=== PATIENT | female | born 1935 | race Asian ===

== ENCOUNTER 2021-03-31 13:55 | Emergency (ER) | payer OTHER ==
[~2021-03-31] VITALS: Ht 132.1 cm; Wt 43.1 kg
[~2021-03-31 13:55] MED LIST: CARB100T PO; CARV3.12 PO; CLOP75TA PO; GABA100C PO; NITR0.4T2 SL; VAS2.5 PO
[2021-03-31 14:06] VITALS: BP 176/80
[2021-03-31] MEDS ORDERED: KETOROLAC 30 MG/ML VIAL IM ONE (14:45)
[2021-03-31] MEDS ORDERED: ACET-8386 PO (15:51)
[2021-03-31] MEDS ORDERED: IBUP-1842 PO (15:51)
[2021-03-31 16:00] VITALS: BP 165/82
== END 2021-03-31 16:00 | disposition home or self-care (01) ==
LOC: MED 13:55
DX: M25.511 Pain in right shoulder (principal); I10 Essential (primary) hypertension; Z79.899 Other long term (current) drug therapy; Z98.890 Other specified postprocedural states; W07.XXXA Fall from chair, initial encounter; Y93.89 Activity, other specified; Y92.89 Other specified places as the place of occurrence of the external cause; Y99.8 Other external cause status
CPT/HCPCS: 73030; 73060; 73080; 96372; 99284; J1885

== ENCOUNTER 2021-04-19 23:34 | Inpatient (IN) | payer OTHER, SELFPAY ==
[~2021-04-19] VITALS: Ht 149.9 cm; Wt 36.3 kg
[~2021-04-19 23:34] MED LIST changes: +ACET-8386 PO; +IBUP-1842 PO
[2021-04-19 23:59] VITALS: BP 190/65
--- NOTE | 2021-04-20 00:02 | NUR ---
TO LOBBY A/W BED AMBULATORY
--- NOTE | 2021-04-20 01:30 | NUR ---
PT BE BED BY WHEELCHAIR
[2021-04-20 01:59] LABS: BASOPHILS % (AUTO) 0.4 % (0.0-2.0); EOSINOPHILS # (AUTO) 0.2 K/uL (0-0.4); EOSINOPHILS % (AUTO) 2.5 % (0.0-4.0); HEMATOCRIT 33.8 % (36-48); HEMOGLOBIN 11.6 g/dL (12.0-16.0); LYMPHOCYTES # (AUTO) 1.3 K/uL (2.5-16.5); MEAN CORPUSCULAR HEMOGLOBIN 34 pg (27-31); MEAN CORPUSCULAR HGB CONC 35 g/dL (33-37); MEAN CORPUSCULAR VOLUME 98.7 fL (80-94); MONOCYTES # (AUTO) 0.7 K/uL (0.8-1.0); MONOCYTES % (AUTO) 10.7 % (1.7-9.3); NEUTROPHILS # (AUTO) 4.7 K/uL (1.8-7.7); NEUTROPHILS % (AUTO) 67.4 % (42.2-75.2); PLATELET COUNT (AUTO) 263 K/uL (140-450); RED BLOOD CELL COUNT(AUTO) 3.42 MIL/uL (4.20-5.40); RED CELL DISTRIBUTION WIDTH 12.9 % (11.6-13.7); WHITE BLOOD COUNT (AUTO) 6.9 K/uL (4.8-10.8)
--- NOTE | 2021-04-20 02:05 | NUR ---
85 YO/F BIB son w CO lower L abdominal/pelvic pain 04/17, describes as "heavy" pain and unable to urinate x1 day. Patient also reports slight BENZ. Bowel sounds present through out all quadrants. AOX4, GCS15, breathing even and unlabored. Patient laying in bed locked in lowest position x2 side rails up for patient safety. Son at bed side. NAD, will continue to monitor. PMH:HTN NKA
--- NOTE | 2021-04-20 02:20 | NUR ---
DOVD made aware of patient's elevated BP.
--- NOTE | 2021-04-20 02:30 | NUR ---
400mL clear yellow urine collected via straight cath, sample collected for lab.
[2021-04-20 02:36] LABS: ALBUMIN 3.8 g/dL (3.4-5.0); ANION GAP 12.4 (8-16); ASPARTATE AMINOTRANSFERASE 22 U/L (15-37); CARBON DIOXIDE 26.1 mmol/L (21-32); CHLORIDE 93 mmol/L (98-107); CREATININE 0.7 mg/dL (0.6-1.3); GLUCOSE 100 mg/dL (74-106); LIPASE 163 U/L (73-393); POTASSIUM 3.5 mmol/L (3.5-5.1); SODIUM SERUM 128 mmol/L (136-145); TOTAL BILIRUBIN 0.3 mg/dL (0.0-1.0); UREA NITROGEN, BLOOD 14 mg/dL (7-18)
[2021-04-20 02:44] LABS: APPEARANCE,URINE CLEAR (CLEAR); BILIRUBIN,URINE NEGATIVE (NEGATIVE); BLOOD, URINE NEGATIVE (NEGATIVE); COLOR,URINE YELLOW (YELLOW); LEUKOCYTE ESTERASE ,URINE NEGATIVE (NEGATIVE); NITRITE, URINE NEGATIVE (NEGATIVE); PH,URINE 6.5 (5.0-9.0); UGLUCOSE NEGATIVE (NEGATIVE)
[2021-04-20] MEDS ORDERED: NACL 0.9% 1,000 ML IV SCH ×2 (03:00→11:40)
--- NOTE | 2021-04-20 05:20 | NUR ---
16 FR PAT CATHETER INSERTED W 400CC CLEAR URINE OUTPUT. PATIENT STATES RELIEF OF ABDOMINAL/PELVIC SYMPTOMS.
[2021-04-20] MEDS ORDERED: NACL 0.9% 1,000 ML IV ONE (05:50)
--- NOTE | 2021-04-20 06:05 | NUR ---
Trinity sample collected from patient nares, walked sample to lab and handed to Sole from lab.
[2021-04-20] MEDS ORDERED: CARV3.12 PO (06:36)
[2021-04-20] MEDS ORDERED: GABA100C PO (06:36)
[2021-04-20] MEDS ORDERED: CARB200T1 PO (06:36)
[2021-04-20] MEDS ORDERED: CARB1TAB37 PO (06:36)
[2021-04-20] MEDS ORDERED: [UNRECOGNIZED DRUG - CODE] PO (06:36)
[2021-04-20] MEDS ORDERED: ENAL10TA51 PO (06:36)
[2021-04-20] MEDS ORDERED: ACET-8386 PO (06:36)
[2021-04-20] MEDS ORDERED: AMAN100S37 PO (06:36)
--- NOTE | 2021-04-20 07:09 | NUR ---
Report given to MAURO Garcia for transfer of care at this time.
--- NOTE | 2021-04-20 07:30 | NUR ---
Received report from Ofe WADE, assumed care at this time.
--- NOTE | 2021-04-20 07:51 | NUR ---
Patient will be admitted to care of Dr. Waldrop. Admited to TELE. Will go to room 110B. Belongings list completed. Report to Adelina.
[2021-04-20 08:00] VITALS: BP 165/85
--- NOTE | 2021-04-20 08:00 | NUR ---
PRIOR TO PATIENT ARRIVAL, RECEIVED REPORT FROM ED NURSE. PT RESTING IN BED WITH SON AT BEDSIDE. ABLE TO MAKE NEEDS KNOWN. RESPIRATIONS EVEN AND UNLABORED WITH NO SOB OR RESPIRATORY DISTRESS. SKIN WARM AND DRY TO TOUCH. MRSA SWAB COLLECTED AND SENT TO LAB. SAFETY MEASURES IN PLACE. WILL CONTINUE TO MONITOR
--- NOTE | 2021-04-20 08:15 | NUR ---
PATIENT CALLED AND SAID SHE NEEDS TO USE THE BEDPAN. PT HAD XL FORMED BROWN BOWEL MOVEMENT. CLEANED UP PATIENT COMFORTABLY. SAFETY MEASURES IN PLACE. WILL CONTINUE TO MONITOR
--- NOTE | 2021-04-20 08:34 | NUR ---
PATIENT HAS BEEN SCREENED AND CATEGORIZED HIGH NUTRITION RISK. PATIENT WILL BE SEEN WITHIN 1-2 DAYS OF ADMISSION. 04/20/21-04/21/[address]
--- NOTE | 2021-04-20 09:15 | NUR ---
ADMINISTERED SCHED MED PRESCRIBED PER MD ORDER. PT TOLERATED WELL. SAFETY MEASURES IN PLACE. WILL CONTINUE TO MONITOR
--- NOTE | 2021-04-20 10:30 | NUR ---
COLLECTED URINE SODIUM, PER MD ORDER. PT TOLERATED WELL. SENT SPECIMEN TO LAB. SAFETY MEASURES IN PLACE. WILL CONTINUE TO MONITOR
--- NOTE | 2021-04-20 10:59 | NUR ---
DR MARCELO AT BEDSIDE SPEAKING WITH PT'S SON VIA [employer]IV[employer] PROFESSIONAL ETHEL #[id number] IN SPANISH.
[2021-04-20] MEDS ORDERED: POTASSIUM CHLORIDE 10 MEQ TABER PO PRN (11:40)
[2021-04-20] MEDS ORDERED: MORPHINE SULFATE 2 MG/ML SYR IVP PRN (11:40)
[2021-04-20] MEDS ORDERED: bisacodyL 5 MG TABEC PO PRN (11:40)
[2021-04-20] MEDS ORDERED: ZOLPIDEM 5 MG TAB PO PRN ×2 (11:40)
[2021-04-20] MEDS ORDERED: amLODIPine 5 MG TAB PO SCH (11:40)
[2021-04-20] MEDS ORDERED: ACETAMINOPHEN 325 MG TAB PO PRN (11:40)
[2021-04-20] MEDS ORDERED: DOCUSATE SODIUM 100 MG GELCAP PO PRN (11:40)
[2021-04-20] MEDS ORDERED: ONDANSETRON 4 MG/2 ML VIAL IM/IVP PRN (11:40)
[2021-04-20] MEDS ORDERED: LORazepam 2 MG/ML VIAL IM/IVP PRN (11:40)
[2021-04-20] MEDS ORDERED: MAG SULF 2000 MG/WATER PREMIX 50 ML IV PRN (11:40)
[2021-04-20] MEDS ORDERED: HYDROcodone/APAP 5/325 MG 1 TAB TAB PO PRN (11:40)
[2021-04-20 12:00] VITALS: BP 182/61
--- NOTE | 2021-04-20 12:03 | NUR ---
DR. MARCELO APPROVED RD RECOMMENDATIONS FOR CARDIAC DIET.
[2021-04-20] MEDS ORDERED: ENALAPRIL 10 MG TAB PO SCH (13:00)
[2021-04-20] MEDS ORDERED: MINERAL OIL 135 ML ENEM RC SCH ×2 (13:00→18:00)
--- NOTE | 2021-04-20 13:00 | NUR ---
PATIENT REFUSED MINERAL OIL ENEMA. PT STARTED TO CRY AND BECOME ANGRY WHEN POSITIONED FOR ENEMA. EXPLAINED PROCEDURE TO PATIENT AND SON BUT BOTH DENIED MINERAL OIL ENEMA. PT SON SAYS "SHE HAD BOWEL MOVEMENT THIS MORNING, SHE OKAY." SAFETY MEASURES IN PLACE. WILL CONTINUE TO MONITOR
--- NOTE | 2021-04-20 13:25 | NUR ---
04/20/21 RD INITIAL ASSESSMENT COMPLETED PLEASE REFER TO NUTRITION ASSESSMENT UNDER CARE ACTIVITY FOR ESTIMATED NUTRITIONAL NEEDS. 1. RECOMMEND MECHANICAL SOFT CARDIAC DIET TOLERATED. 2. RD TO FOLLOW-UP 3-5 DAYS, MODERATE RISK STELLA PERRY RD
[2021-04-20] MEDS: CARBIDOPA/LEVODOPA 25/100 MG 1 TAB PO SCH ×2 (13:29→16:48)
--- NOTE | 2021-04-20 14:30 | NUR ---
PT COMPLAINING OF DISCOMFORT WITH PAT BUT DOES NOT WANT ANY PAIN MEDICATIONS. PAGED RAVINDRA ERVIN TO SEAN PAT. REMOVED PAT PER MD ORDER. PT TOLERATED WELL. SAFETY MEASURES IN PLACE. WILL CONTINUE TO MONITOR
[2021-04-20 16:00] VITALS: BP 181/62
--- NOTE | 2021-04-20 16:40 | NUR ---
PT RESTING IN BED. WITH SON AT BEDSIDE. NO SIGNS OF DISTRESS. WILL CONTINUE TO MONITOR
[2021-04-20] MEDS ORDERED: carvediloL 3.125 MG TAB PO SCH ×2 (16:45→21:00)
[2021-04-20 16:49] LABS: ANION GAP 11.9 (8-16); CARBON DIOXIDE 23.9 mmol/L (21-32); CHLORIDE 100 mmol/L (98-107); CREATININE 0.6 mg/dL (0.6-1.3); GLUCOSE 109 mg/dL (74-106); POTASSIUM 3.8 mmol/L (3.5-5.1); PROTHROMBIN TIME 10.2 secs (10.8-13.4); SODIUM SERUM 132 mmol/L (136-145); UREA NITROGEN, BLOOD 16 mg/dL (7-18)
[2021-04-20 17:02] LABS: THYROID STIMULATING HORMONE 0.5 uIU/mL (0.34-3.74)
--- NOTE | 2021-04-20 17:56 | NUR ---
USED [employer] TECHNICIAN ASSISTANT YEN [id number] FOR TRANSLATION. PT SON SAYS PATIENT IS COMPLAINING OF MODERATE PAIN IN LOWER ABDOMEN. ADMINISTERE PRN PAIN MEDICATION PRESCRIBED PER MD ORDER. PT REFUSED ENEMA EARLIER TODAY, PT AND SON IN AGREEMENT FOR ENEMA. PROVIDED ENEMA PRESCRIBED PER MD ORDER. PT TOLERATED WELL. SAFETY MEASURES IN PLACE. WILL CONTINUE TO MONITOR
[2021-04-20 18:03] LABS: MAGNESIUM 1.7 mg/dL (1.8-2.4); PHOSPHORUS 3.4 mg/dL (2.5-4.9)
--- NOTE | 2021-04-20 18:43 | NUR ---
PT HAS NOT VOIDED SINCE PAT WAS REMOVED PER PATIENT AND SON REQUEST. PT HAS PAIN IN LOWER ABD. SCANNED BLADDER AND FOUND 500ML INSIDE BLADDER. PAGED DR. MARCELO, ORDERS RECEIVED, WILL CONTINUE TO MONITOR
--- NOTE | 2021-04-20 19:00 | NUR ---
INSERTED PAT 14FR. PT TOLERATED WELL. 600ML OF URINE OUTPUT. SAFETY MEASURES IN PLACE. WILL CONTINUE TO MONITOR
--- NOTE | 2021-04-20 19:20 | NUR ---
ENDORSED AT BEDSIDE TO NIGHTSHIFT FOR CONTINUITY OF CARE
--- NOTE | 2021-04-20 19:21 | NUR ---
RECEIVED PATIENT FROM AM NURSE FOR CONTINUITY OF CARE. PATIENT IS ICELANDIC SPEAKING. A/A/O X4. RESPIRATORY EVEN AND UNLABORED, ON ROOM AIR, NO SIGN OF DISTRESS NOTED. ABDOMEN SOFT, NON TENDER, NO DISTENDED. BOWEL SOUND ACTIVE TO 4 QUADRANTS. SKIN WARM, DRY, NON DIAPHORETIC. IV ON LEFT WRIST 24G, INTACT AND PATENT, IS INFUSING FLUID ORDER. PAT IN PLACE, CLEAR YELLOW URINE NOTED. PATIENT DENIES ANY PAIN, ABLE TO MAKE NEED KNOWN. FAMILY AT BEDSIDE. PLAN OF CARE DISCUSSED, PATIENT AND FAMILY VERBALIZED UNDERSTANDING. PRECAUTION IN PLACE. CALL LIGHT WITHIN REACH. WILL CONTINUE TO MONITOR.
--- NOTE | 2021-04-20 19:40 | NUR ---
PATIENT'S MAGNESIUM 1.7, MAG SULF IVPB GIVEN WITH EDUCATION TO PATIENT AND FAMILY, PATIENT AND FAMILY VERBALIZED UNDERSTANDING. PATIENT TOLERATED WELL. PRECAUTION IN PLACE. CALL LIGHT WITHIN REACH. WILL CONTINUE TO MONITOR.
[2021-04-20 20:00] VITALS: BP 177/61
--- NOTE | 2021-04-20 20:48 | NUR ---
PATIENT AND PATIENT'S FAMILY WANT TO LEAVE AMA. SUPERIOR AWARE AND EXPLAINED THE CONSEQUENCE TO PATIENT AND FAMILY MEMBER, THEY VERBALIZED UNDERSTANDING. NOTIFIED DR TERRAZAS, DR TERRAZAS AWARE AND OK WITH THE PATIENT'S WISH.
--- NOTE | 2021-04-20 20:53 | NUR ---
PATIENT'S DAUGHTER - MIRYAM WATKINS SIGNED AMA.
[2021-04-20] MEDS ORDERED: GABAPENTIN 100 MG CAP PO SCH (21:00)
[2021-04-20] MEDS ORDERED: carBAMazepine 200 MG TAB PO SCH (21:00)
[2021-04-20] MEDS ORDERED: AMANTADINE 100 MG CAP PO SCH (21:00)
--- NOTE | 2021-04-20 21:23 | NUR ---
[facility] IV REMOVAL, BLEEDING CONTROL. PAT REMOVAL, PATIENT TOLERATED WELL. ID BAND REMOVAL. PATIENT IS STABLE.
[2021-04-21 08:18] LABS: T4 (THYROXINE) 5.4 ug/dL (4.5-12.0)
[2021-04-21] MEDS ORDERED: CLOPIDOGREL 75 MG TAB PO SCH (09:00)
== END 2021-04-20 21:23 | disposition left against medical advice (07) | DRG 698 ==
LOC: MED 23:34 → MTU 04-20 05:55 → UNDODISIN 04-20 21:23
DX: N13.9 Obstructive and reflux uropathy, unspecified (principal); G93.41 Metabolic encephalopathy; I50.43 Acute on chronic combined systolic (congestive) and diastolic (congestive) heart failure; M48.50XA Collapsed vertebra, not elsewhere classified, site unspecified, initial encounter for fracture; E87.1 Hypo-osmolality and hyponatremia; E86.1 Hypovolemia; G20 Parkinson's disease; I25.10 Atherosclerotic heart disease of native coronary artery without angina pectoris; K59.09 Other constipation; Z53.29 Procedure and treatment not carried out because of patient's decision for other reasons; Z20.822 Contact with and (suspected) exposure to COVID-19; E86.0 Dehydration; R33.9 Retention of urine, unspecified; E87.8 Other disorders of electrolyte and fluid balance, not elsewhere classified; G47.00 Insomnia, unspecified; F02.80 Dementia in other diseases classified elsewhere, unspecified severity, without behavioral disturbance, psychotic disturbance, mood disturbance, and anxiety; G62.9 Polyneuropathy, unspecified; D63.8 Anemia in other chronic diseases classified elsewhere; I11.0 Hypertensive heart disease with heart failure; E83.42 Hypomagnesemia; K72.90 Hepatic failure, unspecified without coma; Z79.899 Other long term (current) drug therapy
CPT/HCPCS: 36415; 80048; 80053; 81003; 82140; 82570; 83036; 83605; 83690; 83735; 83880; 84100; 84134; 84300; 84436; 84443; 84484; 85025; 85610; 85730; 87040; 87081; 96360; 99285; J3475